=== PATIENT | female | born 1970 | race Caucasian/White ===

== ENCOUNTER → 2016-11-08 | Outpatient (CLI) | payer OTHER ==
[~2016-11-08] MED LIST: CLARITIN10 MG PO; CORTISPORIN SUS10 ML OT; CULTURELLE1 EACH PO; FLONASE ALLERG9.9 ML NAS; HYDROCODONE BIT1 T11 PO; LASIX20 MG PO; LISINOPRIL2.5 MG PO; MEDROL DOSEPAK4 MG PO; METFORMIN HCL500 MG PO; PREDNISONE10 MG PO; ROBITUSSIN AC 110 ML PO; SYNTHROID0.112 MG PO; ZOFRAN ODT4 MG SL
== END | disposition home or self-care (01) ==
LOC: US 20:46
DX: M79.89 Other specified soft tissue disorders (principal)

== ENCOUNTER 2017-01-08 19:53 | Emergency (ER) | payer OTHER ==
[~2017-01-08] VITALS: Ht 152.4 cm; Wt 106.6 kg
[2017-01-08] MEDS ORDERED: ZOFRAN ODT4 MG SL (20:31)
== END 2017-01-08 20:46 | disposition home or self-care (01) ==
LOC: ED 19:53
DX: A08.4 Viral intestinal infection, unspecified (principal); Z98.890 Other specified postprocedural states; Z79.899 Other long term (current) drug therapy; Z88.0 Allergy status to penicillin; Z88.8 Allergy status to other drugs, medicaments and biological substances; Z88.1 Allergy status to other antibiotic agents

== ENCOUNTER 2017-03-05 11:46 | Emergency (ER) | payer OTHER ==
[~2017-03-05] VITALS: Ht 165.1 cm; Wt 104.8 kg
[2017-03-05] MEDS ORDERED: IBU800 MG PO (13:39)
== END 2017-03-05 13:45 | disposition home or self-care (01) ==
LOC: ED 11:46
DX: S60.212A Contusion of left wrist, initial encounter (principal); Z88.0 Allergy status to penicillin; Z88.1 Allergy status to other antibiotic agents; Z88.2 Allergy status to sulfonamides; Z88.8 Allergy status to other drugs, medicaments and biological substances; Z79.899 Other long term (current) drug therapy; W22.8XXA Striking against or struck by other objects, initial encounter; Y93.89 Activity, other specified; Y92.9 Unspecified place or not applicable; Y99.9 Unspecified external cause status

== ENCOUNTER → 2018-02-16 | Outpatient (CLI) | payer OTHER ==
[~2018-02-16] MED LIST changes: +IBU800 MG PO
== END | disposition home or self-care (01) ==
LOC: WOUNDCARE 00:04
DX: S80.821D Blister (nonthermal), right lower leg, subsequent encounter (principal); I73.9 Peripheral vascular disease, unspecified; R22.43 Localized swelling, mass and lump, lower limb, bilateral; I89.0 Lymphedema, not elsewhere classified; I10 Essential (primary) hypertension; X58.XXXD Exposure to other specified factors, subsequent encounter

== ENCOUNTER → 2018-03-16 | Outpatient (CLI) | payer OTHER | END | disposition home or self-care (01) | LOC: WOUNDCARE 13:21 | DX: I87.333 Chronic venous hypertension (idiopathic) with ulcer and inflammation of bilateral lower extremity (principal); L97.811 Non-pressure chronic ulcer of other part of right lower leg limited to breakdown of skin; L97.821 Non-pressure chronic ulcer of other part of left lower leg limited to breakdown of skin; E03.9 Hypothyroidism, unspecified ==

== ENCOUNTER → 2018-05-04 | Outpatient (CLI) | payer OTHER | END | disposition home or self-care (01) | LOC: WOUNDCARE 11:25 | DX: I87.311 Chronic venous hypertension (idiopathic) with ulcer of right lower extremity (principal); L97.811 Non-pressure chronic ulcer of other part of right lower leg limited to breakdown of skin; E03.9 Hypothyroidism, unspecified ==

== ENCOUNTER → 2018-05-11 | Outpatient (CLI) | payer OTHER | END | disposition home or self-care (01) | LOC: WOUNDCARE 03:40 | DX: I87.311 Chronic venous hypertension (idiopathic) with ulcer of right lower extremity (principal); L97.811 Non-pressure chronic ulcer of other part of right lower leg limited to breakdown of skin; E03.9 Hypothyroidism, unspecified; Z68.42 Body mass index [BMI] 45.0-49.9, adult ==

== ENCOUNTER → 2018-05-18 | Outpatient (CLI) | payer OTHER | END | disposition home or self-care (01) | LOC: WOUNDCARE 11:00 | DX: I87.311 Chronic venous hypertension (idiopathic) with ulcer of right lower extremity (principal); L97.811 Non-pressure chronic ulcer of other part of right lower leg limited to breakdown of skin; E03.9 Hypothyroidism, unspecified ==

== ENCOUNTER → 2018-05-25 | Outpatient (CLI) | payer OTHER | LOC: US 02:25 | DX: S81.801A Unspecified open wound, right lower leg, initial encounter (principal); L97.919 Non-pressure chronic ulcer of unspecified part of right lower leg with unspecified severity; R60.9 Edema, unspecified; X58.XXXA Exposure to other specified factors, initial encounter; Y93.89 Activity, other specified; Y92.89 Other specified places as the place of occurrence of the external cause; Y99.8 Other external cause status ==

== ENCOUNTER → 2018-06-09 | Outpatient (CLI) | payer OTHER | END | disposition home or self-care (01) | LOC: WOUNDCARE 03:42 | DX: I87.311 Chronic venous hypertension (idiopathic) with ulcer of right lower extremity (principal); L97.811 Non-pressure chronic ulcer of other part of right lower leg limited to breakdown of skin; E03.9 Hypothyroidism, unspecified ==

== ENCOUNTER → 2018-07-22 | Outpatient (CLI) | payer OTHER | END | disposition home or self-care (01) | LOC: WOUNDCARE 11:15 | DX: I87.311 Chronic venous hypertension (idiopathic) with ulcer of right lower extremity (principal); L97.811 Non-pressure chronic ulcer of other part of right lower leg limited to breakdown of skin; I89.0 Lymphedema, not elsewhere classified; E03.9 Hypothyroidism, unspecified ==

== ENCOUNTER 2018-08-22 11:01 | Emergency (ER) | payer OTHER ==
[~2018-08-22] VITALS: Ht 162.5 cm; Wt 122.9 kg
[2018-08-22] MEDS ORDERED: FLONASE ALLERG9.9 ML NAS (11:14)
[2018-08-22] MEDS ORDERED: CLARITIN10 MG PO (11:14)
[2018-08-22] MEDS ORDERED: PREDNISONE10 MG PO (11:14)
== END 2018-08-22 12:41 | disposition home or self-care (01) ==
LOC: ED 11:01
DX: J20.9 Acute bronchitis, unspecified (principal); R03.0 Elevated blood-pressure reading, without diagnosis of hypertension; Z88.0 Allergy status to penicillin; Z88.2 Allergy status to sulfonamides; Z88.8 Allergy status to other drugs, medicaments and biological substances; Z79.899 Other long term (current) drug therapy

== ENCOUNTER → 2018-11-09 | Outpatient (CLI) | payer OTHER | END | disposition home or self-care (01) | LOC: WOUNDCARE 04:07 | DX: I87.311 Chronic venous hypertension (idiopathic) with ulcer of right lower extremity (principal); L97.811 Non-pressure chronic ulcer of other part of right lower leg limited to breakdown of skin; I89.0 Lymphedema, not elsewhere classified; E03.9 Hypothyroidism, unspecified; I87.8 Other specified disorders of veins ==

== ENCOUNTER → 2018-11-11 | Outpatient (CLI) | payer OTHER | END | disposition home or self-care (01) | LOC: WOUNDCARE 01:26 | DX: I87.311 Chronic venous hypertension (idiopathic) with ulcer of right lower extremity (principal); L97.811 Non-pressure chronic ulcer of other part of right lower leg limited to breakdown of skin; I89.0 Lymphedema, not elsewhere classified; E03.9 Hypothyroidism, unspecified ==

== ENCOUNTER → 2018-12-04 | Outpatient (CLI) | payer OTHER | END | disposition home or self-care (01) | LOC: WOUNDCARE 02:55 | DX: I87.332 Chronic venous hypertension (idiopathic) with ulcer and inflammation of left lower extremity (principal); L97.222 Non-pressure chronic ulcer of left calf with fat layer exposed; L97.811 Non-pressure chronic ulcer of other part of right lower leg limited to breakdown of skin; I89.0 Lymphedema, not elsewhere classified; E03.9 Hypothyroidism, unspecified ==

== ENCOUNTER → 2018-12-11 | Outpatient (CLI) | payer OTHER | END | disposition home or self-care (01) | LOC: WOUNDCARE 00:50 | DX: I87.332 Chronic venous hypertension (idiopathic) with ulcer and inflammation of left lower extremity (principal); L97.222 Non-pressure chronic ulcer of left calf with fat layer exposed; I87.311 Chronic venous hypertension (idiopathic) with ulcer of right lower extremity; L97.811 Non-pressure chronic ulcer of other part of right lower leg limited to breakdown of skin; I89.0 Lymphedema, not elsewhere classified; E03.9 Hypothyroidism, unspecified ==

== ENCOUNTER → 2018-12-18 | Outpatient (CLI) | payer OTHER | END | disposition home or self-care (01) | LOC: EDSTATUS 03:36 → WOUNDCARE 03:37 | DX: I87.332 Chronic venous hypertension (idiopathic) with ulcer and inflammation of left lower extremity (principal); L97.222 Non-pressure chronic ulcer of left calf with fat layer exposed; I87.311 Chronic venous hypertension (idiopathic) with ulcer of right lower extremity; L97.811 Non-pressure chronic ulcer of other part of right lower leg limited to breakdown of skin; I89.0 Lymphedema, not elsewhere classified; E03.9 Hypothyroidism, unspecified ==

== ENCOUNTER → 2019-01-04 | Outpatient (CLI) | payer OTHER | END | disposition home or self-care (01) | LOC: WOUNDCARE 00:39 | DX: I87.333 Chronic venous hypertension (idiopathic) with ulcer and inflammation of bilateral lower extremity (principal); L97.222 Non-pressure chronic ulcer of left calf with fat layer exposed; L97.211 Non-pressure chronic ulcer of right calf limited to breakdown of skin; I89.0 Lymphedema, not elsewhere classified; E03.9 Hypothyroidism, unspecified ==

== ENCOUNTER → 2024-12-15 | Outpatient (CLI) | payer OTHER ==
[2024-12-15 08:59] LABS: HEMATOCRIT 46.9 % (37.0-47.0); MEAN CELL VOLUME 84.8 fl (81.0-99.0); MEAN CORPUSCULAR HGB 28.4 pg (27.0-31.0); MEAN CORPUSCULAR HGB CONC 33.5 g/dl (33.0-37.0); MEAN PLATELET VOLUME 9.8 fl (9.6-12.3); RED BLOOD COUNT 5.53 10*6/uL (4.10-5.10); RED CELL DISTRI WIDTH 12.7 % (0-14.5); WHITE BLOOD COUNT 7.1 10*3/uL (4.8-10.8)
[2024-12-15 09:44] LABS: VITAMIN D, 25-HYDROXY 48.6 ng/mL (30-100)
[2024-12-15 09:59] LABS: ALKALINE PHOSPHATASE 99 U/L (46-116); BUN 18 mg/dl (9-23); CHLORIDE 99 mmol/L (98-107); CHOLESTEROL 188 mg/dL (<200); FREE T4 1.79 ng/dl (0.89-1.76); LDL CHOLESTEROL 97 mg/dL (9-159); POTASSIUM 3.7 mmol/L (3.4-5.1); SGPT/ALT 13 U/L (5-49); TRIGLYCERIDES 186 mg/dl (<150)
== END | disposition home or self-care (01) ==
LOC: LAB 08:38
PROVIDERS: ATTEND Family Medicine
DX: E78.00 Pure hypercholesterolemia, unspecified (principal); R53.83 Other fatigue; E03.9 Hypothyroidism, unspecified; E55.9 Vitamin D deficiency, unspecified; Z79.899 Other long term (current) drug therapy

== ENCOUNTER → 2025-02-07 | Outpatient (CLI) | payer OTHER ==
[2025-02-07 09:45] LABS: HEMATOCRIT 42.6 % (37.0-47.0); MEAN CELL VOLUME 84.5 fl (81.0-99.0); MEAN CORPUSCULAR HGB 29.2 pg (27.0-31.0); MEAN CORPUSCULAR HGB CONC 34.5 g/dl (33.0-37.0); MEAN PLATELET VOLUME 9.6 fl (9.6-12.3); RED BLOOD COUNT 5.04 10*6/uL (4.10-5.10); RED CELL DISTRI WIDTH 12.6 % (0-14.5)
[2025-02-07 10:05] LABS: ALKALINE PHOSPHATASE 93 U/L (46-116); BUN 13 mg/dl (9-23); CHLORIDE 99 mmol/L (98-107); CHOLESTEROL 173 mg/dL (<200); CPK 59 U/L (34-171); FREE T4 1.62 ng/dl (0.89-1.76); LDL CHOLESTEROL 85 mg/dL (9-159); POTASSIUM 3.6 mmol/L (3.4-5.1); SGPT/ALT 16 U/L (5-49); TOTAL PROTEIN 7.4 gm/dL (6.0-8.0); TRIGLYCERIDES 206 mg/dl (<150)
== END | disposition home or self-care (01) ==
LOC: LAB 09:22
PROVIDERS: ATTEND Family Medicine
DX: I10 Essential (primary) hypertension (principal); E11.9 Type 2 diabetes mellitus without complications; E03.9 Hypothyroidism, unspecified; E78.00 Pure hypercholesterolemia, unspecified

== ENCOUNTER → 2025-03-07 | Outpatient (CLI) | payer OTHER | END | disposition home or self-care (01) | LOC: MAMMO 02-24 11:00 | PROVIDERS: ATTEND Family Medicine | DX: Z12.31 Encounter for screening mammogram for malignant neoplasm of breast (principal); R92.313 Mammographic fatty tissue density, bilateral breasts ==

== ENCOUNTER → 2025-04-22 | Outpatient (CLI) | payer OTHER ==
[2025-04-22 10:27] LABS: BUN 16 mg/dl (9-23); SGPT/ALT 17 U/L (5-49)
== END | disposition home or self-care (01) ==
LOC: LAB 09:39
PROVIDERS: ATTEND Family Medicine
DX: E87.6 Hypokalemia (principal); R60.0 Localized edema

== ENCOUNTER → 2025-07-12 | Outpatient (CLI) | payer OTHER ==
[2025-07-12 10:10] LABS: MEAN CELL VOLUME 85.8 fl (81.0-99.0); MEAN CORPUSCULAR HGB 29.4 pg (27.0-31.0); MEAN PLATELET VOLUME 9.9 fl (9.6-12.3); NUCLEATED RED BLOOD CELL 0.0 % (0.0-0.0); NUCLEATED RED BLOOD CELL 0.0 10*3/uL (0.0-0.0); PLATELET COUNT AUTOMATED 231.0 10*3/uL (130-400); RED CELL DISTRI WIDTH 12.5 % (0-14.5)
[2025-07-12 10:43] LABS: BUN 14 mg/dl (9-23); CPK 56 U/L (34-171); FREE T4 1.95 ng/dl (0.89-1.76); LDL CHOLESTEROL 92 mg/dL (9-159); SGPT/ALT 19 U/L (5-49)
[2025-07-12 10:58] LABS: VITAMIN D, 25-HYDROXY 58.5 ng/mL (30-100)
== END | disposition home or self-care (01) ==
LOC: LAB 09:50
PROVIDERS: ATTEND Family Medicine
DX: I10 Essential (primary) hypertension (principal); E11.9 Type 2 diabetes mellitus without complications; E03.9 Hypothyroidism, unspecified; E55.9 Vitamin D deficiency, unspecified; E78.00 Pure hypercholesterolemia, unspecified; R53.83 Other fatigue